=== PATIENT | male | born 1995 | race Caucasian/White ===

== ENCOUNTER 2022-11-12 00:17 | Emergency (ER) | payer OTHER ==
[2022-11-12] MEDS ORDERED: traMADol HCl 50 MG TAB ONE (01:39)
[2022-11-12] MEDS ORDERED: AMOXicillin 250 MG CAP ONE (03:33)
== END 2022-11-12 03:40 ==
LOC: NAV ERS 00:17
DX: S62.616A Displaced fracture of proximal phalanx of right little finger, initial encounter for closed fracture (principal); S02.2XXA Fracture of nasal bones, initial encounter for closed fracture; S02.831A Fracture of medial orbital wall, right side, initial encounter for closed fracture; Y04.0XXA Assault by unarmed brawl or fight, initial encounter; E10.9 Type 1 diabetes mellitus without complications; Z79.4 Long term (current) use of insulin
CPT/HCPCS: 29125; 70486